=== PATIENT | female | born 1950 | race Caucasian/White ===

== ENCOUNTER 2018-01-11 15:37 | Emergency (ER) | payer OTHER ==
[~2018-01-11] VITALS: Ht 157.5 cm; Wt 68.1 kg
[~2018-01-11 15:37] MED LIST: ACETAMINOPHEN-1 EAC1 PO; AMPYRA10 MG PO; ASPIRIN81 M2 PO; AUBAGIO14 MG PO; BENTYL 20 MG TA20 M1 PO; BENTYL20 MG PO; CALCIUM 500 +1 EAC5 PO; CIPRO500 MG PO; DETROL LA4 MG PO; FISH OIL 1,0001 EAC7 PO; HYDROCODON-ACE1 EAC7 PO; HYDROCODON-ACE1 EACH PO; MYRBETRIQ25 MG PO; SIMVASTATIN20 MG PO; TRICOR145 MG PO; VITAMIN D1000 UNI1 PO
[2018-01-11] MEDS ORDERED: MYRBETRIQ25 MG PO (16:06)
[2018-01-11 18:49] VITALS: BP 152/105
== END 2018-01-11 18:49 | disposition home or self-care (01) ==
LOC: M.ERS 15:37
DX: S13.8XXA Sprain of joints and ligaments of other parts of neck, initial encounter (principal); S50.02XA Contusion of left elbow, initial encounter; S00.83XA Contusion of other part of head, initial encounter; M81.0 Age-related osteoporosis without current pathological fracture; G35 Multiple sclerosis; Z90.710 Acquired absence of both cervix and uterus; W18.2XXA Fall in (into) shower or empty bathtub, initial encounter; Y93.89 Activity, other specified; Y92.89 Other specified places as the place of occurrence of the external cause; Y99.8 Other external cause status

== ENCOUNTER 2018-10-23 23:48 | Inpatient (IN) | payer OTHER ==
[~2018-10-23] VITALS: Ht 157.5 cm; Wt 72.1 kg
[2018-10-23 23:54] VITALS: BP 149/75
[2018-10-24 00:53] LABS: HEMATOCRIT 44.1 % (37.0-47.0); HEMOGLOBIN 14.8 gm/dL (12.0-15.0); MCH 30.1 pg (26.0-34.0); MCHC 33.5 g/dL (28.0-37.0); MCV 89.9 fL (80.0-100.0); MPV 9.4 fl. (7.2-11.1); NUCLEATED RBCS 0 /100WBC; PLATELET COUNT* 258 thou/uL (150-400); RDW-CV 14.1 % (10.5-14.5); WBC 8.2 thou/uL (4.0-11.0)
[2018-10-24 01:01] LABS: CALCIUM 8.5 mg/dL (8.5-10.1); CREATININE 1.1 mg/dL (0.6-1.3); POTASSIUM 4.2 mmol/L (3.5-5.1)
[2018-10-24 01:05] LABS: ALBUMIN 2.9 g/dL (3.4-5.0); TOTAL BILIRUBIN 0.4 mg/dL (<0.1-1.0); TOTAL PROTEIN 6.3 g/dL (6.4-8.2)
[2018-10-24 01:46] LABS: ABSOLUTE LYMPHOCYTES 0.8 thou/uL (0.8-5.3); ABSOLUTE MONOCYTES 0.7 thou/uL (0.0-1.2); ABSOLUTE NEUTROPHILS 6.7 thou/uL (1.6-8.1)
[2018-10-24 01:47] LABS: LARGE PLATELETS FEW; PLATELET ESTIMATE ADEQUATE
[2018-10-24 03:43] LABS: URINE BILIRUBIN NEGATIVE (Negative); URINE BLOOD 3+ (Negative); URINE CLARITY CLEAR; URINE COLOR YELLOW; URINE GLUCOSE-RANDOM NEGATIVE (Negative); URINE KETONES 2+ (Negative); URINE LEUKOCYTES NEGATIVE (Negative); URINE NITRITE NEGATIVE (Negative); URINE PROTEIN NEGATIVE (Negative); URINE SPECIFIC GRAVITY >= 1.030 (1.005-1.030); URINE UROBILINOGEN 0.2 E.U./dl (0.2-1.0)
[2018-10-24 04:02] LABS: SQUAMOUS >10 Many /LPF (0-3)
[2018-10-24 04:03] LABS: CASTS None Seen /LPF (None Seen)
[2018-10-24 04:04] LABS: CRYSTALS None Seen /LPF (None Seen); URINE RBC >20 Many /HPF (0-2); URINE WBC 6-15 Few /HPF (0-5)
[2018-10-24 04:45] VITALS: BP 147/80
[2018-10-24 05:03] VITALS: BP 123/46
[2018-10-24 08:00] VITALS: BP 142/49
--- NOTE | 2018-10-24 11:04 | NUR ---
SPOKE TO THE PATIENT TO DISCUSS HER HOME SITUATION, DISCHARGE PLANNING, AND TO INFORM OF THE ROLE OF CM. PATIENT IS ALERT AND ORIENTED. PATIENT IS NORMALLY INDEPENDENT WITH ADL'S. PATIENT RESIDES AT HOME WITH HER MOTHER. PATIENT AND HER MOTHER SHARE RADIOLOGIC ELECTRONIC SPECIALIST AND COOKING. PATIENT INFORMS THAT SHE HAS A VERY SUPPORTIVE FAMILY, AND THAT HER SON ASSIST WITH TRANSPORTATION TO APPOINTMENTS AND SISTER ASSIST WITH [employer] SHOPPING. PATIENT OWNS A CANE (IN THE HOME) AND A WALKER (LONG DISTANCES) FOR MOBILITY. PATIENT HAS A HX OF HH IN THE PAST AFTER A SX, BUT COULD NOT RECALL THE NAME. PATIENT HAS NO HX OF SNF, BUT INFORMS THAT IF NEEDED SHE WOULD CONSIDER SNF AT [facility]. D/C PATIENT SERVICE TECHNICIAN PST TO SEND INITIAL REFERRAL TO V, BUT THERE ARE CURRENTLY NO PT/OT NOTES AVAILABLE PATIENTS WEIGHT BEARING STATUS IS NOT KNOWN AND AWAITING ORTHO CONSULT. CM WILL REMAIN AVAILABLE TO ASSIST AND FOLLOW NEEDED.
[2018-10-24 16:00] VITALS: BP 112/39
--- NOTE | 2018-10-24 17:13 | NUR ---
PATIENT RESTING IN BED. PATIENT HAS BEEN ON BEDREST TODAY. PATIENT SEEN BY DR CEDILLO THIS EVENING, AND PATIENT IS WBAT. PATIENT HAS HAD PAIN TO LEFT LEG TREATED ADEQAUTELY WITH HYDROCODONE. PATIENT WENT TO MRI THIS AFTERNOON WITHOUT INCIDENT. PATIENT HAS GOOD APPETITE. PATIENT DENIES ANY NEEDS AT THIS TIME. CALL LIGHT WITHIN REACH. WILL CONTINUE TO MONITOR.
[2018-10-24 20:45] VITALS: BP 118/53
[2018-10-25 05:03] LABS: CALCIUM 7.8 mg/dL (8.5-10.1); CREATININE 0.9 mg/dL (0.6-1.3)
--- NOTE | 2018-10-25 05:42 | NUR ---
PT SLEPT MOST OF SHIFT. ASSESSMENT DOCUMENTED. MEDS GIVEN PER E-AUG. PT LOST IV THIS SHIFT. WILL RESTART NEW IV. PAIN MEDS GIVEN PER E-AUG. NO REPORTS OF NAUSEA. INTERDRY IN PLACE. WILL CONTINUE WITH PLAN OF CARE.
[2018-10-25 08:10] VITALS: BP 134/62
--- NOTE | 2018-10-25 17:46 | NUR ---
PATIENT RESTING UP IN CHAIR. PATIENT IS UP MAX ASSIST FOR TRANSFERS. PATIENT WORKED WITH PHYSICAL AND OCCUPATIONAL THERAPIES TODAY. PATIENT HAS HAD COMPLAITS OF PAIN X 2 TODAY, TREATED ADEQUATELY WITH HYDROCODONE. PATIENT HAS GOOD APPETITE. PATIENT DENIES ANY NEEDS AT THIS TIME. CALL LIGHT WITHIN REACH. WILL CONTINUE TO MONITOR.
[2018-10-25 22:00] VITALS: BP 149/59
--- NOTE | 2018-10-26 04:21 | NUR ---
PT ALERT AND ORIENTED. PT UP TO CHAIR HALF OF SHIFT. PAIN MEDS GIVEN X1 THIS SHIFT. RELIEF NOTED. VSS ON RA. ASSESSMENT COMPLETED AND CHARTED. SHERWOOD TO URINE OUTPUT. PT IN BED NOW AND RESTING. CONTACT ISOLATION. BED IN LOW POSITION. CALL LIGHT WITHIN REACH. WILL CONTINUE TO MONITOR.
[2018-10-26 08:15] VITALS: BP 134/59
[2018-10-26 15:25] LABS: URINE BILIRUBIN NEGATIVE (Negative); URINE BLOOD NEGATIVE (Negative); URINE CLARITY CLEAR; URINE COLOR YELLOW; URINE GLUCOSE-RANDOM NEGATIVE (Negative); URINE KETONES NEGATIVE (Negative); URINE LEUKOCYTES NEGATIVE (Negative); URINE NITRITE NEGATIVE (Negative); URINE PROTEIN NEGATIVE (Negative); URINE UROBILINOGEN 0.2 E.U./dl (0.2-1.0)
--- NOTE | 2018-10-26 16:06 | NUR ---
PATIENT REFUSING ALL MORNING AND AFTERNOON TO GET INTO CHAIR, STATED "I SAT IN CHAIR ALL DAY YESTERDAY." PATIENT EDUCATED ON ACTIVITY. OT HERE THIS EVENING AND GOT PATIENT UP TO CHAIR. VICODIN GIVEN X 2 FOR RIGHT HIP PAIN. IVF AND SCHED ABX INFUSING ORDERED. CULT OF ABD BLISTERS REMAIN PENDING. PER DR. BANG FROM NEUROLOGY, WILL EVALUATE FOR STEROIDS TOMORROW.
[2018-10-26 16:15] VITALS: BP 150/52
--- NOTE | 2018-10-26 16:17 | NUR ---
MAGAZINE PUBLISHER RECIEVED A CALL FROM SHANE WITH ADMISSIONS AT [facility] AND SHE INFORMS THAT THEY HAVE RECIEVED INSURANCE AUTH FOR THE PATIENT. RN IN-CHARGE OF THE PATIENT INFORMS THAT THE PATIENT IS NOT READY TO D/C SHE MAY HAVE SHINGLES. RN INFORMS THAT THE PATIENT HAS OTHER CONSULTS PENDING WELL, AND SHE MAY NOT BE READY TO D/C OVER THE WEEKEND. D/C CENTRAL OFFICE MAINTAINER ALSO RECIEVED A CALL FROM [facility] [employer]ET[employer] DIRECTOR AND SHE INFORMS THAT INPATIENT REHAB HAD BEEN CONSULTED WELL. CM WILL REMAIN AVIALABLE TO ASSIST AND FOLLOW NEEDED.
[2018-10-26 20:20] VITALS: BP 132/57
[2018-10-27] VITALS: BP 148/68
[2018-10-27 04:00] VITALS: BP 150/70
[2018-10-27 04:36] LABS: ABSOLUTE EOSINOPHILS 0.3 thou/uL (0.0-0.7); ABSOLUTE LYMPHOCYTES 2.8 thou/uL (0.8-5.3); ABSOLUTE MONOCYTES 0.8 thou/uL (0.0-1.2); ABSOLUTE NEUTROPHILS 1.8 thou/uL (1.6-8.1); BASOPHILS 0.7 %; EOSINOPHILS 4.8 %; HEMATOCRIT 40.8 % (37.0-47.0); HEMOGLOBIN 13.6 gm/dL (12.0-15.0); LYMPHOCYTES 48.5 %; MCHC 33.4 g/dL (28.0-37.0); MCV 89.9 fL (80.0-100.0); MONOCYTES 13.7 %; MPV 10.5 fl. (7.2-11.1); NUCLEATED RBCS 0 /100WBC; PLATELET COUNT* 197 thou/uL (150-400); POLYS 32.3 %; RBC 4.53 mil/uL (4.20-5.00); RDW-CV 14.6 % (10.5-14.5); WBC 5.7 thou/uL (4.0-11.0)
[2018-10-27 05:34] LABS: CALCIUM 8.3 mg/dL (8.5-10.1); CREATININE 0.8 mg/dL (0.6-1.3); POTASSIUM 3.8 mmol/L (3.5-5.1)
--- NOTE | 2018-10-27 05:44 | NUR ---
PT ALERT AND ORIENTED. VSS ON RA. SINUS RHYTHM ON THE MONITOR. ASSESMENT COMPLETED AND DOCUMENTED. PT UP TO CHAIR THIS SHIFT. SHERWOOD PATENT. YELLOW URINE OUTPUT NOTED. PT GETS TEARY WHEN AMBULATION FROM CHAIR TO BED. PAIN MEDS GIVEN THIS SHIFT. RELIEF NOTED. CONTACT ISOLATION IN PLACE. NEW IV STARTED THIS BUT DC'D D/T INFILTRATION. NO IV ACESS AT THIS SHIFT. HOURLY ROUNDINGS MADE. CALL LIGHT WITHIN REACH. WILL CONTINUE PPLAN OF CARE
[2018-10-27 07:55] VITALS: BP 151/60
[2018-10-27 12:29] VITALS: BP 150/57
--- NOTE | 2018-10-27 17:07 | NUR ---
PATIENT RESTING UP IN CHAIR. PATIENT IS UP MAX ASSIST WITH GAIT BELT AND WALKER FOR TRANSFERS. PATIENT REFUSED PHYSICAL THERAPY TODAY. PATIENT HAD COMPLAINTS OF PAIN X 1 TREATED WITH HYDROCODONE. PATIENT HAS GOOD APPETITE. PATIENT DENIES ANY NEEDS AT THIS TIME. CALL LIGHT WITHIN REACH. WILL CONTINUE TO MONITOR.
[2018-10-27 19:50] VITALS: BP 168/65
[2018-10-28 00:02] VITALS: BP 175/61
[2018-10-28 04:00] VITALS: BP 157/72
--- NOTE | 2018-10-28 07:18 | NUR ---
PT ALERT AND ORIENTED THIS SHIFT. VSS ON RA. ASSESSMNENT DONE AND CHARTED. PT SLEPT MOST OF THE SHIFT. SINUS RHYTHM ON MONITOR. PAIN MED GIVEN X1 THIS SHIFT. RELIEF NOTED. CONTACT AND AIRBORNE ISOLATION IN PLACE. FALL PRECAUTION. HOURLY ROUNDS MADE. WILL CONTINUE TO MONITOR.
[2018-10-28 07:45] VITALS: BP 186/63
[2018-10-28] MEDS ORDERED: VITAMIN B-12500 MCG PO (12:45)
[2018-10-28] MEDS ORDERED: ACYCLOVIR 400400 MG PO (12:45)
[2018-10-28] MEDS ORDERED: SENNA PLUS TAB1 EACH PO (12:45)
[2018-10-28] MEDS ORDERED: HYDROCODON-ACE1 EAC7 PO (12:45)
--- NOTE | 2018-10-28 16:08 | NUR ---
PATIENT RESTING UP IN CHAIR. PATIENT IS UP WITH MODERATE/MAX ASSIST FOR TRANSFER WITH GAIT BELT AND WALKER. PATIENT HAD BEEN REFUSING SKILLED PLACEMENT BUT AFTER SPEAKING WITH HER SON SHE BECAME AGREEABLE TO GO TO HALFWAY FACILTY AT DISCHARGE. PATIENT DENIES ANY PAIN TODAY. PATIENT HAS FAIR APPETITE. PATIENT DENIES ANY NEEDS AT THIS TIME. CALL LIGHT WITHIN REACH. WILL CONTINUE TO MONITOR.
[2018-10-28 16:09] VITALS: BP 155/69
[2018-10-28 19:45] VITALS: BP 156/77
--- NOTE | 2018-10-29 05:10 | NUR ---
PT IN CHAIR FOR PART OF SHIFT. PT SLEPT MOST OF NIGHT. ASSESSMENT DOCUMENTED. MEDS GIVEN PER E-MAR. IV PATENT. PT HAD NO REPORTS OF PAIN THIS SHIFT, STATING SHE WOULD LET STAFF KNOW IF SHE GETS PAIN. PT STATES THAT SHE WILL WORK WITH PT TODAY. WILL CONTINUE WITH PLAN OF CARE.
[2018-10-29 07:30] VITALS: BP 165/61
--- NOTE | 2018-10-29 14:11 | NUR ---
CHA received call from [facility] asking about dc plans for pt as apparently [facility] had provided insurance auth for rehab; CHA forwarded call to Leydi with inpt rehab who stated that inpt rehab did not submit for auth yet due to pt not ready to dc on Monday. From previous CM notes, appears the auth was actually for [facility]; auth will lapse today if pt is not ready to dc today. Dr Denny had initiated and wants to consider inpt rehab for pt dc plan. SW to continue to follow to assist with safe dc planning.
--- NOTE | 2018-10-29 16:07 | NUR ---
RECEIVED CONSULT FOR INPATIENT ACUTE REHAB. WILL CONTINUE TO FOLLOW DURING HOSPITAL STAY. THANK YOU FOR THE REFERRAL
--- NOTE | 2018-10-29 16:28 | NUR ---
PATIENT UP TO CHAIR THIS SHIFT, REPOSITIONED AND BRIEF CHANGED FOR INCONTINENCE. SHINGLES TO ABD AND BACK DRAINING, ID CONSULTED. IV REMAINS SL. PRN VICODIN GIVEN X 2 WITH GOOD PAIN RELIEF NOTED. REHAB PLACMENT PENDING.
[2018-10-29 17:26] VITALS: BP 147/62
[2018-10-29 19:45] VITALS: BP 147/71
[2018-10-30 04:05] LABS: ABSOLUTE EOSINOPHILS 0.3 thou/uL (0.0-0.7); ABSOLUTE LYMPHOCYTES 2.6 thou/uL (0.8-5.3); ABSOLUTE MONOCYTES 0.5 thou/uL (0.0-1.2); ABSOLUTE NEUTROPHILS 3.1 thou/uL (1.6-8.1); BASOPHILS 0.5 %; EOSINOPHILS 4.5 %; HEMATOCRIT 41.2 % (37.0-47.0); HEMOGLOBIN 13.6 gm/dL (12.0-15.0); LYMPHOCYTES 39.8 %; MCH 29.5 pg (26.0-34.0); MCHC 33.2 g/dL (28.0-37.0); MONOCYTES 7.3 %; MPV 10.4 fl. (7.2-11.1); NUCLEATED RBCS 0 /100WBC; PLATELET COUNT* 207 thou/uL (150-400); POLYS 47.9 %; RBC 4.62 mil/uL (4.20-5.00); RDW-CV 13.7 % (10.5-14.5); WBC 6.4 thou/uL (4.0-11.0)
[2018-10-30 04:35] LABS: CALCIUM 8.8 mg/dL (8.5-10.1); CREATININE 0.8 mg/dL (0.6-1.3); POTASSIUM 4.2 mmol/L (3.5-5.1)
--- NOTE | 2018-10-30 05:49 | NUR ---
PT SLEPT MOST OF SHIFT. ASSESSMENT DOCUEMENTED. MEDS GIVEN PER E-AUG. IV PATENT. PAIN MEDS GIVEN PER E-MAR. PT INCONTINENT THROUGH NIGHT. PT IN CHAIT PART OF SHIFT. WILL CONTINUE WITH PLAN OF CARE.
[2018-10-30 07:50] VITALS: BP 167/84
--- NOTE | 2018-10-30 10:53 | NUR ---
CHA spoke with Leydi/inpt rehabilitation specialist who stated that inpt rehab accepted and now will submit for insurance auth so dc to inpt rehab pending insurance auth/response. SW to continue to follow.
--- NOTE | 2018-10-30 16:50 | NUR ---
PATIENT UP TO CHAIR THIS SHIFT, REPOSITIONED IN CHAIR. LARGE BM NOTED THIS SHIFT. VANCYCLOVIR STARTED TODAY BY DR. HERNANDEZ FROM ID, PATIENT TO START TONIGHT. PER DR. LINDSAY HOLD OFF ON TRANSFER TO REHAB FOR A FEW DAYS DUE TO SHINGLES. IV REMAINS SL, FLUSHING WITHOUT DIFFICULTY. PATIENT NOT STIFF WHEN STANDING AND SITTING TODAY. PRN HYDROCODONE GIVEN FOR PAIN WITH GOOD RELIEF NOTED.
[2018-10-30 20:15] VITALS: BP 123/69
[2018-10-31 05:18] LABS: CALCIUM 8.5 mg/dL (8.5-10.1); CREATININE 0.8 mg/dL (0.6-1.3); POTASSIUM 4.1 mmol/L (3.5-5.1)
[2018-10-31 05:21] LABS: ABSOLUTE EOSINOPHILS 0.3 thou/uL (0.0-0.7); ABSOLUTE LYMPHOCYTES 2.9 thou/uL (0.8-5.3); ABSOLUTE MONOCYTES 0.6 thou/uL (0.0-1.2); BASOPHILS 0.5 %; EOSINOPHILS 4.8 %; HEMATOCRIT 40.2 % (37.0-47.0); HEMOGLOBIN 13.2 gm/dL (12.0-15.0); LYMPHOCYTES 42.6 %; MCH 29.7 pg (26.0-34.0); MCHC 32.8 g/dL (28.0-37.0); MCV 90.6 fL (80.0-100.0); MONOCYTES 8.4 %; MPV 10.7 fl. (7.2-11.1); NUCLEATED RBCS 0 /100WBC; PLATELET COUNT* 230 thou/uL (150-400); POLYS 43.7 %; RBC 4.43 mil/uL (4.20-5.00); WBC 6.9 thou/uL (4.0-11.0)
--- NOTE | 2018-10-31 05:23 | NUR ---
PT SLEPT MOST OF SHIFT. ASSESSMENT DOCUMENTED. MEDS GIVEN PER E-MAR. IV PATENT. PAIN MEDS GIVEN PER E-MAR WITH RELIEF. PT INCONTINENT THROUGH NIGHT. INTERDRY IN PLACE. WILL CONTINUE WITH PLAN OF CARE.
[2018-10-31 08:25] VITALS: BP 141/60
--- NOTE | 2018-10-31 12:22 | NUR ---
Nutrition: Pt assessed for LOS. Admitted with MS flare up, extensive skin lesion. In ISO. Likely transfer to rehab in a couple of days. Albumin 2.9. B12 def, CKD III, osteoporosis. Regular diet. Wt: 158#. Has shingles. RX: B12, D3. Recommend MVI. RD will order Beneprotein for added nutrition. +BM yday. Mild risk at this time. GOALS: >75% of meal intake, recommend MVI, Beneprotein bid.
[2018-10-31 16:24] VITALS: BP 106/52
--- NOTE | 2018-10-31 16:49 | NUR ---
PATIENT RESTING UP IN CHAIR. PATIENT IS UP WITH MODERATE ASSIST WITH GAIT BELT AND WALKER. PATIENT DENIES ANY PAIN. PATIENT HAS GOOD APPETITE. PATIENT DENIES ANY NEEDS AT THIS TIME. CALL LIGHT WITHIN REACH. WILL CONITNUE TO MONITOR.
[2018-10-31 19:45] VITALS: BP 137/62
--- NOTE | 2018-11-01 05:46 | NUR ---
PT SLEPT ON AND OFF THIS SHIFT. ASSESSMENT DOCUMENTED. MEDS GIVEN PER E-AUG. IV PATENT. PAIN MEDS GIVEN PER E-AUG. PT UP IN CHAIR PART OF SHIFT. PT INCONTINENT THROUGH NIGHT. ISOLATION MAINTAINED. WILL CONTINUE WITH PLAN OF CARE.
[2018-11-01 07:50] VITALS: BP 139/50
--- NOTE | 2018-11-01 10:37 | CON ---
[address] [address] CONSULTATION Name: ROSAURA SHELDON Room: [address] IN M.R.#: [id number] Admission: 10/24/18 Attend Phys: Evangelina Colbert MD Discharge: Date of : 48 Report #: [id number] THIS REPORT FOR: //name// CC: Evangelina Quiles DATE OF SERVICE: 10/30/2018 INFECTIOUS DISEASE CONSULTATION: ATTENDING PHYSICIAN: Dr. Colbert. REASON FOR EVALUATION: Lumbar right-sided Varicella zoster. HISTORY OF PRESENT ILLNESS: Chart reviewed, patient examined. This is a 68-year-old woman with known multiple sclerosis who was admitted subsequent to a fall, was unable to get up on 10/24/2018, who developed an inflammatory eruption. It was quite painful unilaterally over the left-sided upper lumbar distribution. This was clinically diagnosed as Varicella zoster. She was started on antiviral medicine, does have persistent pain; although, my sense is, it may be lessened. Had significant pulmonary and gastrointestinal related complaints. She has been afebrile. She notes she did receive the shingles vaccine at some point several years ago. ALLERGIES: None known. MEDICATIONS: Include acyclovir 800 mg 5 times a day, pantoprazole, enoxaparin, cyanocobalamin, mirabegron, cholecalciferol, hydrocodone and ondansetron as needed. PAST MEDICAL HISTORY: As described above, multiple sclerosis, history of osteoporosis, previous hysterectomy, did have chickenpox as a child. SOCIAL HISTORY: Nonsmoker, no ethanol. FAMILY HISTORY: Noncontributory. REVIEW OF SYSTEMS: Appetite has been fair. Denies significant pulmonary-related complaints. No gastrointestinal distress, otherwise unremarkable 10-point review of systems. PHYSICAL EXAMINATION: GENERAL: She is alert, cooperative. She is sitting in the reclining chair. She is not overtly distressed, appears to be tracking fairly well. Mildly undernourished and somewhat chronically ill appearing. VITAL SIGNS: Temperature 97.8, pulse 71, respirations 18, [place] [address] CONSULTATION Name: PITO,ROSAURA S Room: [address]#: [id number] Admission: 10/24/18 Attend Phys: Evangelina Colbert MD Discharge: Date of : 48 Report #: [id number] 167/84. SKIN: Warm, dry. HEENT: Normocephalic. Extraocular muscles intact. NECK: Supple. LUNGS: Clear to auscultation. HEART: Regular. I do not appreciate a murmur. ABDOMEN: Soft. There is some tenderness on the left side. EXTREMITIES: Does have zoster form type eruption over lumbar dermatome that extends laterally and posteriorly. GENITOURINARY: Deferred. RECTAL: Deferred. LABORATORY DATA: Electrolytes: Sodium 142, potassium 4.2, chloride 107, bicarbonate is 25, anion gap of 10, BUN and creatinine 17 and 0.8, glucose of 100, CRP of 9.5. CBC: White count of 6.4, H and H 13.6 and 41.2, platelets of 207. Differential unremarkable. Blood cultures sterile thus far. Culture of the site with no growth collected on the . Culture of the virus preliminarily showed no virus at 24 hours. ASSESSMENT AND PLAN: Varicella zoster. It is reasonable to continue systemic antiviral at this point. We will adjust therapy. It is difficult to ascertain how well she would absorb the acyclovir. At this point, it is not clear if she will have some postherpetic neuralgia. Continue symptomatic treatment, may benefit potentially from Lidoderm patch or some topical anesthetic. We will monitor expectantly. Certainly at risk for nosocomial related infectious complications, add incentive spirometer, increase activity as allowed. <ELECTRONICALLY SIGNED> By: Marvin Burch MD 11/01/18 1037 [id number] Burch MD /nt
--- NOTE | 2018-11-01 14:36 | NUR ---
CHA spoke with Leydi/physician liaison today to receive updates on insurance auth process, Leydi said auth wasn't submitted yesterday bc medical stability was not clear. CHA spoke with Dr Denny and Dr Denny also wrote for dc, confirmed medically stable for a couple of days now; so then inpt rehab submitted for auth. Possible for admit to inpt rehab today if auth received.
[2018-11-01 16:55] VITALS: BP 125/68
[2018-11-01 16:56] VITALS: BP 125/68
[2018-11-01] MEDS ORDERED: VALTREX 500 MG500 MG PO (17:02)
--- NOTE | 2018-11-01 19:27 | NUR ---
PATIENT DISCHARGED TO INPATIENT REHAB. REPORT GIVEN TO PAUL ALVAREZ. BELONGINGS TRANSFERRED TO ROOM 325. IV REMOVED. COPY OF CHART AND DISCHARGE ORDERS PROVIDED.
--- NOTE | 2018-11-05 16:31 | CON ---
[address] [address] CONSULTATION Name: ROSAURA SHELDON Room: [address] IN M.R.#: [id number] Admission: 10/24/18 Attend Phys: Evangelina Colbert MD Discharge: 11/01/18 Date of : 48 Report #: [id number] THIS REPORT FOR: //name// CC: Evangelina Quiles DATE OF SERVICE: 10/24/2018 HISTORY OF PRESENT ILLNESS: This is a 68-year-old female patient who was evaluated by me for MS. None of the family member is here. The patient does not remember things very well. She indicates that she was diagnosed with MS more than 20 years ago. She had some visual disturbances at that time, but she does not remember what they were. She followed up with Dr. Chan and then she believes she went to another neurologist. She indicates that she has not had any MRI recently. She does not know how many times contrast was injected into her. She does not know when was her last MRI. She indicates she has been diagnosed now with chronic progressive MS, but looks like at one time, it was relapsing, remitting. She is not on any disease-modifying treatment. She does not know when she took the last steroids. She lives with her mom and her sister helps her. She fell and she came with musculoskeletal injuries, which is being worked up for hospitalist. REVIEW OF SYSTEMS: Positive for MS. At this time, she is admitted after a mechanical fall. To me, she denies any discomfort in the back. She does have a history of osteoporosis and hysterectomy. REVIEW OF SYSTEMS: A 14-point review of system was carried out and she indicates she does not have any new eye, ENT, cardiac, respiratory, GI, , constitutional, dermatological, hematological, psychiatric, throat, allergic symptoms associated with present symptomatology. PAST MEDICAL HISTORY: Positive for MS. FAMILY HISTORY: Negative for any early age stroke. SOCIAL HISTORY: She does not use alcohol or tobacco. PHYSICAL EXAMINATION: Indicate she is alert. She is responsive. She can tell me what month it is and what hospital she is in, but she does not remember her history very well. I think her memory and fund of knowledge is diminished, but at her baseline. Cranial nerve examination 2-12 indicates mostly noncontributory. She has very little strength in lower extremities. She barely can move them, but she can move them to some extent. Her position sense is intact. The reflexes are present and maybe somewhat hyper. Tone looks symmetrical. I could not look at the patient's fundus. She does not appear to have any clearcut cerebellar sign. Cardiac [place] [address] CONSULTATION Name: ROSAURA SHELDON Room: [address] IN .#: [id number] Admission: 10/24/18 Attend Phys: Evangelina Colbert MD Discharge: 11/01/18 Date of : 48 Report #: [id number] noncontributory. No respiratory difficulty was noticed. Her hearing and vision is adequate. Vital signs indicate a blood pressure of 142/49, respirations 18, pulse is 84, and temperature is 99.1. LABORATORY DATA: Urinalysis indicate 2+ ketones and 6-[address] scan appears unremarkable. IMPRESSION AND PLAN: I suspect the patient has deteriorated partly because of her urinary tract infection. I think it will be desirable to do an MRI to make sure she does not have any bone lesion. Her GFR is borderline, but we will do the MRI before contrast to make sure she did not injure her spine or any other abnormalities present and then may consider with contrast. We will see how she does with physical therapy. All of it was discussed with the patient in detail and she wants to follow this plan. She does need the treatment of her musculoskeletal problem, which is being addressed by hospitalist. Thank you very much for this referral. <ELECTRONICALLY SIGNED> By: Ramses Love MD 11/05/18 1631 [id number] Love MD /nt
== END 2018-11-01 18:50 | DRG 543 ==
LOC: M.ERS 23:48 → M.3W 10-24 03:03 → M.TBA-ER 10-24 03:03 → M.3W 10-24 06:01
PROVIDERS: Emergency Medicine; Family Medicine; Internal Medicine; Psychiatry & Neurology Neuromuscular Medicine; ADMIT Internal Medicine
DX: M80.062A Age-related osteoporosis with current pathological fracture, left lower leg, initial encounter for fracture (principal); E44.0 Moderate protein-calorie malnutrition; B01.9 Varicella without complication; Z90.710 Acquired absence of both cervix and uterus; B02.9 Zoster without complications; N18.3 Chronic kidney disease, stage 3 (moderate); Z79.82 Long term (current) use of aspirin; Z79.899 Other long term (current) drug therapy; S82.102A Unspecified fracture of upper end of left tibia, initial encounter for closed fracture; E53.8 Deficiency of other specified B group vitamins; W18.39XA Other fall on same level, initial encounter; Y93.89 Activity, other specified; Y92.89 Other specified places as the place of occurrence of the external cause; Y99.8 Other external cause status; Z68.29 Body mass index [BMI] 29.0-29.9, adult

== ENCOUNTER 2018-11-01 17:10 | Inpatient (IN) | payer OTHER ==
[~2018-11-01] VITALS: Ht 157.5 cm; Wt 67.1 kg
[~2018-11-01 17:10] MED LIST changes: +ACYCLOVIR 400400 MG PO; +SENNA PLUS TAB1 EACH PO; +VALTREX 500 MG500 MG PO; +VITAMIN B-12500 MCG PO
[2018-11-01 19:30] VITALS: BP 185/68
--- NOTE | 2018-11-02 00:36 | NUR ---
ASSUMED CARE AT 1929 WHEN PATIENT ADMITTED TO ROOM 325 FROM [facility]. RESTED IN RECLINER UNTIL AROUND 2129. WHEN SHE ATTEMPTED TO RISE FROM SITTING TO STAND, PATIENT STATED SHE WAS UNABLE TO WALK TO THE TOILET. BSC OBTAINED. PATIENT UP WITH MAX ASSIST OF 2 TO BSC. PATIENT DID OWN HYGIENE. TO BED WITH MAX ASSIST OF 2. TAKES PILLS WHOLE WITH WATER. ASSESSMENT COMPLETE, FORMS SIGNED. WBAT LLE. MEDICATED FOR PAIN, SEE MAR. HAS SHINGLES TO LT BUTTOCK AND BACK, SOME ARE DRYING UP, MOST COVERED WITH BRIEF. WEARS BRIEF DUE TO INCONTINENCE. STATES SHE DRIBBLES MOST ALL OF THE TIME. DID VOID PER BSC, BLADDER SCAN SHOWED 103 ML. ORIENTED TO REHAB ROUTINE. HOURLY ROUNDS CONTINUE. BED ALARM ON. CALL LITE IN REACH.
[2018-11-02 03:52] LABS: HEMATOCRIT 41.2 % (37.0-47.0); HEMOGLOBIN 13.7 gm/dL (12.0-15.0); MCH 29.8 pg (26.0-34.0); MCHC 33.3 g/dL (28.0-37.0); MCV 89.6 fL (80.0-100.0); MPV 9.9 fl. (7.2-11.1); RBC 4.6 mil/uL (4.20-5.00); RDW-CV 14.3 % (10.5-14.5); WBC 6.4 thou/uL (4.0-11.0)
[2018-11-02 04:12] LABS: CALCIUM 8.7 mg/dL (8.5-10.1); CREATININE 0.8 mg/dL (0.6-1.3)
[2018-11-02 05:01] LABS: URINE BILIRUBIN NEGATIVE (Negative); URINE BLOOD NEGATIVE (Negative); URINE CLARITY CLEAR; URINE COLOR YELLOW; URINE GLUCOSE-RANDOM NEGATIVE (Negative); URINE KETONES NEGATIVE (Negative); URINE LEUKOCYTES-REFLEX 1+ (Negative); URINE NITRITE-REFLEX NEGATIVE (Negative); URINE PROTEIN NEGATIVE (Negative); URINE SPECIFIC GRAVITY 1.015 (1.005-1.030); URINE UROBILINOGEN 0.2 E.U./dl (0.2-1.0)
--- NOTE | 2018-11-02 05:27 | NUR ---
SLEPT MUCH OF THE SHIFT UNTIL AROUND 0430. NEEDED TO VOID. SINCE EARLIER UP WTIH MAX ASSIST OF 2, USED BEDPAN. U/A SENT TO LAB PER ORDER. UP WITH LIFTING ASSIST, GAIT BELT, WALKER. TOOK SMALL STEPS FROM BED TO CHAIR WITH CUEING. RESTING WITH LEGS ELEVATED IN RECLINER. MOISTURE BARRIER APPLIED TO GROINS. ENCOUARGED PATIENT TO CHANGE POSITIONS OFTEN WITH AREAS OF SHINGLES TO LT HIP AND BUTTOCKS. MEDICATED FOR PAIN, SEE AUG. HOURLY ROUNDS CONTINUE. BED ALARM ON. CHAIR ALARM ON. CALL LITE IN REACH.
[2018-11-02 06:03] LABS: SQUAMOUS >10 Many /LPF (0-3)
[2018-11-02 06:04] LABS: WBC CLUMPS Few (None Seen)
[2018-11-02 06:06] LABS: BACTERIA-REFLEX 1-9 Few /HPF (None Seen); URINE RBC 0-2 Rare /HPF (0-2); URINE WBC-REFLEX >25 Many /HPF (0-5)
[2018-11-02 06:07] LABS: MUCUS None Seen strn/LPF (None Seen)
[2018-11-02 06:08] LABS: AMORPHOUS URATES Moderate /LPF (None Seen); CASTS None Seen /LPF (None Seen)
[2018-11-02 07:15] VITALS: BP 152/63
--- NOTE | 2018-11-02 12:18 | NUR ---
Nutrition: Pt admitted to rehab with UTI, Lt knee and ankle pain, MS, B12 def. Regulsr diet ordered. Wt: 145#. Acute shingles. Unsure of po intake today. Will follow pt weekly for po intake, wt, labs. Mild risk.
--- NOTE | 2018-11-02 16:35 | NUR ---
SW met with pt to complete initial assessment, introduce self, and SW role on inpt rehab unit. Pt alert, oriented, pleasant. Pt lives at home with her mother. Pt has RW, cane, shower bench. Pt has hx of services, unknown name of agency. Pt has supportive family. SW to continue to follow to assist with safe dc planning.
--- NOTE | 2018-11-02 18:14 | NUR ---
PT A&Ox4. VITALS STABLE. WORKED WITH THERAPY. PAIN CONTROLLED WITH NORCO. INCONTINENT OF BLADDER AT TIMES. UP WITH 1 MOD ASSIST USING GAITBELT/WALKER/WHEELCHAIR. CONTACT PRECAUTIONS MAINTAINED DUE TO SHINGLES ON L LOWER ABD TO LOWER BACK/BOTTOM. FALL PRECAUTIONS IN PLACE. CALL LIGHT WITHIN REACH. WILL CONTINUE TO MONITOR.
[2018-11-02 21:10] VITALS: BP 144/66
--- NOTE | 2018-11-03 06:07 | NUR ---
ASSUMED CARE AT 1920. ALERT AND ORIENTED. ON ISOLATION FOR SHINGLES. SHINGLES RASH TO LEFT SIDE OF ABD/BACK. PAIN MEDS GIVEN NEEDED. WBAT LLE FOR FIBULA FX. MIN ASSIST WITH GAIT BELT AND WALKER. UP TO BATHROOM. WEARS PULLUPS FOR STRESS INCONTINENCE. ONLY SLEPT 3 HRS IN BED. WANTED UP INTO RECLINER AT 0300. SAYS THAT SLEEPS IN RECLINER AT HOME. CALL LIGHT IN REACH AND BED ALARM ON.
[2018-11-03 07:15] VITALS: BP 131/59
--- NOTE | 2018-11-03 16:29 | NUR ---
ALERT AND ORIENTED X 4, UP WITH GAIT BELT AND WALKER CONTACT GUARD. DENIES ANY COMPLAINTS. NO SIGN OF DISTRESS. CONT. WITH PLAN OF CARE.
[2018-11-03 20:32] VITALS: BP 161/57
--- NOTE | 2018-11-04 05:24 | NUR ---
ASSUMED CARES AT 1920. ALERT AND ORIENTED. PLEASANT. PAIN MEDS GIVEN FOR LEFT SIDE PAIN DUE TO SHINGLES. ON CONTACT ISOLATION. MIN ASSIST WITH GAIT BELT AND WALKER. UP TO BATHROOM. WEARS PULLUPS FOR STRESS INCONTINENCE. REFUSED TO SLEEP IN BED AND SLEPT IN RECLINER. CALL LIGHT IN REACH.
--- NOTE | 2018-11-04 16:20 | NUR ---
PATIENT RESTING IN RECLINER. UP WITH SBA GAIT BELT AND WALKER. C/O PAIN, GIVE MEDS ORDER. NO FURTHER COMPLAINTS.
[2018-11-04 19:00] VITALS: BP 137/51
--- NOTE | 2018-11-04 23:13 | NUR ---
ASSUMED CARE AT 1930. PATIENT RESTING IN RECLINER, AND DOES NOT WANT TO SLEEP IN THE HOSPITAL BED. PATIENT DOES CHANGE POSITIONS WHILE IN RECLINER. REFUSES ASSIST WITH TURNS DESPITE EDUCATION. UP WITH SBA, GAIT BELT, WALKER, WBAT LLE. VOIDS PER TOILET, DOES OWN HYGIENE. ASSISTED WITH CHANGING CLOTHES INTO HOSPITAL GOWN AT . WEARS PULLUPS. TAKES PILLS WHOLE WITH WATER. REMAINS ON CONTACT ISOLATION. SHINGLES ARE DRYING UP TO LT FLANK AND BUTTOCKS. HOURLY ROUNDS CONTINUE. BED ALARM ON. CALL LITE IN REACH.
--- NOTE | 2018-11-05 06:34 | NUR ---
SLEPT MOST OF THE NIGHT. VOIDED PER TOILET. UP WITH CGA, GAIT BELT, WALKER. NEEDS MUCH EXTRA TIME. NEEDS CUEING TO STAND TALL RATHER THAN BENT OVER HER WALKER. RETURNED TO RECLINER. WAS INCONTINENT INTO BRIEF, THIS CHANGED WITH VOIDING. PATIENT ABLE TO PULL UP THE PULLUP ONCE THREADED BY NURSING. HOURLY ROUNDS CONTINUE. BED ALARM ON. CALL LITE IN REACH.
[2018-11-05 08:02] VITALS: BP 153/48
--- NOTE | 2018-11-05 15:09 | NUR ---
ASSUMED CARE AT 0730. ALERT ORIENTED PLEASANT COOPERATIVE. HX OF MS AND L KNEE AND RT. HIP WEAKNESS. TRANSFERS WITH MIN ASSIST AND AMBULATES WITH SLOW STEPS G BELT WALKER TO BR TO VOID. WEARS PULLUPS FOR OCCASSIONAL INCONTINENCE. PARTICIPATING IN THERAPIES. TO DR FOR MEALS. USES CALL LIGHT APPROPRIATELY FOR ASSISTANCE. IN ISOLATION FOR HX OF SHINGLES. OK TO GIVE SON INFORMATION PER PT. REQUEST.
[2018-11-05 20:00] VITALS: BP 129/62; BP 141/55
--- NOTE | 2018-11-06 05:27 | NUR ---
ASSUMED CARES AT 1920. ALERT AND ORIENTED. PLEASANT. C/O PAIN TO LEFT SIDE/HIP. PAIN MEDS GIVEN. CONTACT ISOLATION FOR SHINGLES. RASH TO LEFT SIDE AND ABD MOSTLY SCABBED OVER. MIN ASSIST WITH GAIT BELT AND WALKER. UP TO BATHROOM. WEARS PULLUPS. STRESS INCONTINENCE. SLEEPS IN RECLINER. CALL LIGHT IN REACH.
[2018-11-06 07:20] VITALS: BP 129/61
--- NOTE | 2018-11-06 14:15 | NUR ---
ASSUMED CARE AT 0730. ALERT AND ORIENTED PLEASANT COOPERATIVE. HX OF MS AND NON DISPLACED FXS LOWER EXTREMITIES. TRANSFERS WITH SBA G BELT WALKER AMBULATES TO BR TO VOID IS INCONTITNENT IN BRIEFS PULLUPS. HAS HERPES ZOSTER L SIDE AND BACK DRYING AREAS. MEDICATED X 1 FOR L HIP PAIN WITH SOME RELIEF STATED. USES CALL LIGHT APPROPRIATELY FOR ASSIST. IN ISOLATION FOR SHINGLES. TO DR FOR MEALS.
--- NOTE | 2018-11-06 16:45 | NUR ---
SW spoke with pt son Ananda in preparation for team conference. Pt interested in pt medical recommendations and was going to speak with Dr Dacosta in more detail to receive any clarifications on anything. SW discussed team conference and safe dc planning and son did not express any major concerns or questions at this time.
[2018-11-06 20:16] VITALS: BP 152/65
--- NOTE | 2018-11-07 05:16 | NUR ---
ASSUMED CARES AT 1920. ALERT AND ORIENTED. PLEASANT. C/O PAIN TO LEFT SIDE. PAIN MEDS GIVEN. CONTACT ISOLATION FOR SHINGLES. RASH TO LEFT SIDE. MIN ASSIST WITH GAIT BELT AND WALKER. UP TO BATHROOM. WEARS PULLUPS. LIKES TO SLEEP IN RECLINER SHE DOES THIS AT HOME. CALL LIGHT IN REACH.
[2018-11-07 08:03] VITALS: BP 139/57
--- NOTE | 2018-11-07 17:03 | NUR ---
SW met with pt to review team conference summary and plan for pt to remain on rehab unit one more week with team to reassess pt length of stay during team conference next Monday. Pt was emotional about her family possibly discussing pt needing to exchange incontinence pads that pt has ordered for a long time and pt said that is what she wants and she does not want her sister or her son thinking that they can control what pads she orders. Pt was okay with plan to continue therapies and get stronger on rehab. Pt okay with staff speaking to family about her rehab stay and medical conditions and recommendations. CHA called pt son Ananda and he did not answer so SW left message regarding plan to reteam. SW to continue to follow to assist with safe dc planning.
--- NOTE | 2018-11-07 18:14 | NUR ---
PATIENT RESTING IN RECLINER. DENIES COMPLAINTS OF PAIN OR DISCOMFORT. TEARFUL ABOUT HOME SITUATION. TRIED TO TALK TO HER. SHE DID NOT WANT TO TALK.
[2018-11-07 19:55] VITALS: BP 108/52
[2018-11-07 20:21] VITALS: BP 137/56
[2018-11-07 20:25] VITALS: BP 101/62
--- NOTE | 2018-11-08 06:02 | NUR ---
ASSUMED CARES AT 1920. ALERT AND ORIENTED. PLEASANT. C/O PAIN TO LEFT SIDE. PAIN MEDS GIVEN. SHINGLES RASH TO LEFT ABD/BACK. MIN ASSIST WITH GAIT BELT AND WALKER. UP TO BATHROOM BUT IS MOSTLY INCONTINENT OF URINE. WEARS PULLUPS. SLEPT SOME. CALL LIGHT IN REACH AND BED ALARM ON.
--- NOTE | 2018-11-08 18:20 | NUR ---
PT VSS THIS SHIFT. PT COMPLIANT WITH FALL PXN THIS SHIFT AND APPROPRITATELY CALLS OUT FOR PAIN CONTROL AND AMBULATORY NEEDS. PT PARTICIPATED IN ALL THERAPIES SCHEDULED TODAY WITH NO COMPLAINTS OR CONCERNS. ISOLATION REMOVED DUE TO SHINGLES RASH BEING SCABBED OVER. PT TOLERATING RA AND DIET WITH NO C/O N/V THIS SHIFT. HOURLY ROUNDING MAINTAINED. PT REMINDED TO OFFLOAD WEIGHT WHILE SITTING AND WAS GONE FREQUENTLY WITH THERAPIES THIS SHIFT. WILL CONTINUE TO MONITOR AND ASSESS.
[2018-11-08 23:47] VITALS: BP 139/80
--- NOTE | 2018-11-09 01:32 | NUR ---
ASSUMED CARE AT 1930. PATIENT RESTING IN RECLINER. REFUSES TO SLEEP IN BED. REPOSITIONS SELF IN RECLINER. SHINGLES RASH DRIED UP. TAKES PILLS WHOLE WITH WATER. UP WITH GAIT BELT, WALKER. NEEDS EXTRA TIME. VOIDS PER TOILET, ABLE TO DO HYGIENE BUT NEEDS HELP WITH ONE SIDE OF CLOTHING TO MAINTAIN BALANCE WHILE HOLDING GRAB BAR OR WALKER. INCONTINENT INTO PULLUPS, PATIENT CHANGES THEM WITH SET UP. HOURLY ROUNDS CONTINUE. BED ALARM ON. CALL LITE IN REACH.
--- NOTE | 2018-11-09 05:11 | NUR ---
RESTING QUIETLY IN RECLINER. REPOSITIONS SELF. NO C/O PAIN. HOURLY ROUNDS CONTINUE. ALARMS IN USE FOR SAFETY, CALL LITE IN REACH.
[2018-11-09 09:09] VITALS: BP 154/60
--- NOTE | 2018-11-09 15:19 | NUR ---
ASSUMMED CARE OF PT AT 0730, PT ALERT AND ORIENTED, TRANSFERS WITH SBA, GB WALKER, PT MEDICATED FOR LEFT LEG PAIN EARLY THIS AM AND STATES HAD GOOD RELIEF OF PAIN, PT TAKING FOOD AND FLUIDS WELL, PT HAS SOME INCONTINENCE IN BRIEF AND ALSO VOIDS PER TOILET. SHINGLE LESIONS ON BACK DRY/SCABBED. TO DININGROOM FOR LUNCH, PARTICIPATED IN ALL THERAPIES, HOURLY ROUNDING COMPLETED, ASSESSMENT COMPLETE, WILL CONTINUE TO MONITOR.
[2018-11-09 20:21] VITALS: BP 155/64
[2018-11-09 22:00] VITALS: BP 155/64
--- NOTE | 2018-11-10 05:55 | NUR ---
PT ALERT AND ORIENTED. VSS ON RA. PT BROUGHT OUT OF ROOM PER NADYAO WARNING PROTOCOL. PAIN MED GIVEN THIS SHIFT. PT SLEPT ON RECLINER THIS SHIFT. SHE SAYS SHE'S MORE COMFORTABLE ON RECLINER THAN IN BED. FALL PRECAUTION IN PLACE. CALL LIGHT WITHIN REACH. WILL CONTINUE TO MONITOR.
[2018-11-10 07:00] VITALS: BP 156/71
--- NOTE | 2018-11-10 16:53 | NUR ---
ASSUMED CARE AT 0730. ALERT ORIENTED PLEASANT COOPERATIVE. HX OF MS AND FALLS. TRANSFERS WITH SBA G BELT WALKER AMBULATES TO BR TO VOID ALSO INCONTINENT WEARS PULLUPS. FEEDS SELF TAKES MEDS WITHOUT DIFFICULTY. USES CALL LIGHT APPROPRIATELY FOR ASSISTANCE. MEDICATED X 2 FOR C/O L SIDE PAIN RELATED TO SHINGLES WHICH ARE DRY NOW. PARTICIPATING IN THERAPIES THROUGHOUT THE DAY. TO FOR MEALS.
[2018-11-10 20:02] VITALS: BP 136/44
--- NOTE | 2018-11-10 20:05 | NUR ---
SITTING UP IN A RECLINER WATCHING TV. VERY PLEASANT. TOOK MEDICATION WHOLE WITH WATER. SNACK PRAOVIDED. CALL LIGHT WITHIN REACH. STATES SLEEPS IN RECLINER AT NIGHT LIKE SHE DOES AT HOME.
--- NOTE | 2018-11-11 05:35 | NUR ---
SLEPT SOUNDLY UNTIL NOW. UP TO THE BATHROOM WITH SBA, GAITBELT, WALKER TO THE BATHROOM VERY SLOWLY TO VOID. INCONTINENT. NEW BRIEF PROVIDED. PAIN MEDICATION GIVEN FOR COMPLAINT OF LEFT LEG PAIN RATED "8". HOURLY ROUNDING IN PROGRESS.
[2018-11-11 08:00] VITALS: BP 129/59
--- NOTE | 2018-11-11 15:42 | NUR ---
ASSUMED CARE AT 0730. ALERT ORIENTED PLEASANT COOPERATIVE. HX OF MS AND FALLS. TRANSFERS WITH SBA G BELT AMBULATES TO BR VOIDS WEARS PULLUPS FOR INCONTINENCE URINE. SITTING UP IN RECLINER AT BEDSIDE. STATES L LEG PAIN MEDICATED WITH PRN PAIN MED PER PT. REQUEST. USES CALL LIGHT APPROPRIATELY FOR ASSIST SON HERE VISITING BROUGHT LUNCH AND NEW CLOTHES ETC FOR HIS MOM. TAKES MEDS WITHOUT DIFFICULTY. SHINGLES SCABS DRY L SIDE.
[2018-11-11 19:57] VITALS: BP 140/60
--- NOTE | 2018-11-11 23:09 | NUR ---
ASSUMED CARE AT 1930. RESTING IN RECLINER. SLEEPS IN RECLINER. TAKES PILLS WHOLE WITH WATER. REPOSITIONS SELF IN RECLINER. VOIDS PER TOILET. UP WITH SBA, GAIT BELT, WALKER. TAKES EXTRA TIME. DOES OWN HYGIENE BUT NEEDS HELP WITH CLOTHING ADJUSTMENT. DENIES PAIN. HOURLY ROUNDS CONTINUE. CHAIR ALARM ON. CALL LITE IN REACH.
--- NOTE | 2018-11-12 06:27 | NUR ---
SLEPT MOST OF THE NIGHT EXCEPT TO VOID. WEARS PULLUPS AND WAS INCONTINENT OF URINE BUT CONTAINED IN PULLUP. VOIDS PER TOILET WITH RISER. MEDICATED FOR PAIN WITH RELIEF. CHANGED POSITIONS IN RECLINER PER SELF. HOURLY ROUNDS CONTINUE. BED ALARM ON. CALL LITE IN REACH.
[2018-11-12 08:00] VITALS: BP 151/54
--- NOTE | 2018-11-12 15:28 | NUR ---
ASSUMMED CARE OF PT AT 0730, PT ALERT AND ORIENTED, TRANSFERS WITH ASSIST OF 1 GB WALKER, PT COMPLAINS OF PAIN IN LEFT HIP, MEDICATED X 1 WITH RELIEF, TAKING FOOD AND FLUIDS WELL, INCONTINENCE AND PT VOIDS IN TOILET, TO DININGROOM FOR LUNCH, PARTICIPATED IN ALL THERAPIES, HOURLY ROUNDING COMPLETED, ASSESSMENT COMPLETE, WILL CONTINUE TO MONITOR.
[2018-11-12 19:30] VITALS: BP 153/75
--- NOTE | 2018-11-12 20:00 | NUR ---
SITTING UP IN RECLINER WITH LEGS ELEVATED WATCHING TV. SNACK PROVIDED. PAIN MED GIVEN FOR COMPLAINT OF LEFT HIP PAIN RATED "8". CALL LIGHT AND TV CONTROLLER WITHIN REACH.
--- NOTE | 2018-11-13 05:40 | NUR ---
AT ABOUT 0330 DECIDED TO TRY TO SLEEP IN BED BECAUSE WAS BOTTOM WAS GETTING SORE FROM SITTING. UP X ONE DURING THE NIGHT TO THE BATHROOM TO VOID. HOURLY ROUNDING IN PROGRESS.
[2018-11-13 07:15] VITALS: BP 136/64
--- NOTE | 2018-11-13 16:51 | NUR ---
ASSUMMED CARE OF PT AT 0730, PT ALERT AND ORIENTED, TRANSFERS WITH ASSIST OF 1 GB WALKER, SLOW, PT COMPLAINS OF LEFT HIP AND LEG PAIN, MEDICATED PER ORDER, TAKING FOOD AND FLUIDS WELL, HAD LUNCH IN DININGROOM, INCONTINENT OF URINE IN BRIEF AND ALSO AMBULATED TO BATHROOM TO VOID, PARTICIPATED IN ALL THERAPIES, HOURLY ROUNDING COMPLETED, ASSESSMENT COMPLETE, WILL CONTINUE TO MONITOR.
[2018-11-13 19:38] VITALS: BP 158/59
--- NOTE | 2018-11-13 19:50 | NUR ---
SITTING UP IN CHAIR WATCHING TV. DENIES DISCOMFORT. CALL LIGHT WITHIN REACH.
[2018-11-14 04:32] LABS: CALCIUM 8.6 mg/dL (8.5-10.1); CREATININE 0.9 mg/dL (0.6-1.3); MAGNESIUM 2.1 mg/dL (1.8-2.4); POTASSIUM 4.1 mmol/L (3.5-5.1)
[2018-11-14 04:46] LABS: HEMATOCRIT 42.4 % (37.0-47.0); HEMOGLOBIN 14.1 gm/dL (12.0-15.0); MCH 30.5 pg (26.0-34.0); MCHC 33.2 g/dL (28.0-37.0); MCV 91.8 fL (80.0-100.0); MPV 10.3 fl. (7.2-11.1); RBC 4.61 mil/uL (4.20-5.00); RDW-CV 14.6 % (10.5-14.5)
--- NOTE | 2018-11-14 04:59 | NUR ---
RESTED QUIETLY IN RECLINER WITH LEGS ELEVATED ALL NIGHT. NO COMPLAINTS VOICED. HOURLY ROUNDING IN PROGRESS.
[2018-11-14 07:00] VITALS: BP 147/68
--- NOTE | 2018-11-14 15:27 | NUR ---
CHA and Dr Dacosta met with pt to review team conference summary and plan for pt to remain on rehab unit to continue therapies with team to reassess pt length of stay during team conference next Tuesday 11/21. Pt goals mod I and SW dicussed possible mod I trial in TLA eventually but pt was not certain of that change and said that she likes the room she is in now. Pt was in agreement with plan to reteam but was also emotional about having to stay in the hospital. SW to continue to follow to assist with safe dc planning.
--- NOTE | 2018-11-14 17:52 | NUR ---
ASSUMED CARE AT 0730. ALERT ORIENTED PLEASANT COOPERATIVE. HX OF MS AND FALLS. TRANSFERS WITH SBA G BELT WALKER AND AMBULATES TO BR VOIDS HAS INCONTINENCE IN PULLUP AND FRESH PULLUP APPLIED. USES CALL LIGHT FOR ASSISTANCE MEDICATED WITH PRN VICODIN X 1 THIS A.M. FOR L LEG PAIN WITH SOME RELIEF STATED. PARTICIPATING IN THERAPIES THROUGHOUT THE DAY. UP IN RECLINER WHEN NOT IN THERAPIES.
[2018-11-14 20:00] VITALS: BP 146/47
--- NOTE | 2018-11-14 22:10 | NUR ---
INITAL ASSESMENT COMPLETED AT 2029. PT SITTING IN RECLINER AT THAT TIME WITH CALL LIGHT IN REACH. PT DEMONSTRATES PROPER USE OF CALL LIGHT. PT ASSISTED TO RESTROOM BY NURSE TECH. HS MEDS GIVEN PER EMAR. PT SLEEPING IN RECLINER PER HER REQUEST. FREQUENT VISUAL CHECKS DONE.
--- NOTE | 2018-11-15 05:46 | NUR ---
no acute changes throughout shift. pt weak, reqires walker and gait belt for assistance when getting up to bathroom. pt taking prn vicodin for pain on left side from fall at home.
[2018-11-15 08:00] VITALS: BP 139/60
[2018-11-15 08:54] VITALS: BP 139/60
--- NOTE | 2018-11-15 19:01 | NUR ---
PT VSS, TOLERATING RA, THERAPIES, AND DIET THIS SHIFT. PT HAS NO C/O PAIN AND IS ALBE TO CALL OUT FOR AMBULATORY NEEDS. HOURLY ROUNDING MAINTAINED THIS SHIFT. WILL CONTINUE TO MONITOR AND ASSESS
[2018-11-15 20:18] VITALS: BP 175/63
--- NOTE | 2018-11-15 23:09 | NUR ---
ASSUMED CARE AT 1930. PATIENT RESTING IN RECLINER, REFUSES TO SLEEP IN BED. TURNS SELF IN RECLINER. UP TO VOID PER TOILET, GAIT BELT, WALKER, EXTRA TIME. DOES OWN HYGIENE AND CLOTHING ADJUSTMENTS INCLUDING PULLUPS. TAKES PILLS WHOLE WITH WATER. MEDICATED FOR PAIN AT HS, SEE MAR. HOURLY ROUNDS CONTINUE. CHAIR ALARM ON. CALL LITE IN REACH.
--- NOTE | 2018-11-16 06:06 | NUR ---
SLEPT IN RECLINER MOST OF THE NIGHT EXCEPT TO VOID. UP WITH SBA, GAIT BELT, WALKER. STILL ANTICIPATING BM. NO FURTHER C/O PAIN. HOURLY ROUNDS CONTINUE. BED ALARM ON. CALL LITE IN REACH.
[2018-11-16 09:01] VITALS: BP 132/70
--- NOTE | 2018-11-16 13:17 | NUR ---
ASSUMED CARE AT 0730. ALERT ORIENTED PLEASANT COOPERATIVE. HX OF MS AND FALLS. TRANSFERS WITH SBA G BELT WALKER AMBULATES TO BR TO VOID HAS INCONTINENCE OF URINE AND CHANGES PULLUPS WITH BR TRIPS. HAS REDNESS UNDER PANNUS WILL REQUEST CREAM OR POWDER FROM [facility] WHEN ROUNDING TODAY. MEDICATED X 1 FOR C/O SHINGLES PAIN AND L HIP PAIN. PARTICIPATING IN THERAPIES THROUGHOUT THE DAY. UP IN RECLINER AT BEDSIDE WHEN NOT IN THERAPIES.. USES CALL LIGHT APPROPRIATELY FOR ASSISTANCE.
--- NOTE | 2018-11-16 17:44 | NUR ---
PT. HAS REDNESS MOISTNESS UNDER PANNUS AND RT. GROIN AREA. AREAS CLEANSED WITH WOUND CLEANSER AND SOAP AND WATER DRIED WELL INTERDRY PLACED AND PHOTOS TAKEN SEE CHART. REACHING OUT TO DR. MILLER FOR POWDER OR CREAM FOR THIS. PT. IS INCONTINENT AND WEARS PULLUPS WHICH ARE CHANGED WITH TOILETING.
[2018-11-16 20:19] VITALS: BP 150/61
[2018-11-16 21:09] VITALS: BP 150/61
--- NOTE | 2018-11-17 05:20 | NUR ---
PT SLEPT IN THE RECLINER. VSS ON RA. PAIN MEDS GIVEN X1 THIS SHIFT. RELIEF NOTED. PT REFUSED COLACE AND SENNA THIS SHIFT. NO BM NOTED THIS SHIFT. CHAIR ALARM ON. CALL LIGHT WITHIN REACH. PT CALLS OUT APPROPRIATELY. HOURLY ROUNDINGS MADE. WILL CONTINUE PLAN OF CARE.
[2018-11-17 07:54] VITALS: BP 135/78
[2018-11-17 07:57] VITALS: BP 142/61
[2018-11-17 20:14] VITALS: BP 119/60
[2018-11-17 21:00] VITALS: BP 119/60
--- NOTE | 2018-11-18 05:14 | NUR ---
PT ALERT AND ORIENTED. VSS ON RA. PT SLEPT ON RECLINER LIKE SHE HAS BEEN DOING OTHER NIGHTS. PT DENIES N/V/P. PT UPSET THAT NO ANTIFUNGAL POWDER HAS BEEN ORDERED. TO PASS ON TO DAYSHIFT NURSE. PT SAYS SHE WAS ADVICED THAT SHE WOULD NEED POWDER RATHER THAN CREAM. PT TOOK COLACE AND SENNA THIS SHIFT. NO BM NOTED THIS SHIFT. CHAIR ALARM ON. NO BM NOTED THIS SHIFT. BRIEF IN PLACE. PT ALSO VOIDS IN THE TOILET. CALLL LIGHT WITHIN REACH. HOURLY ROUNDINGS MADE. WILL CONTINUE TO MONITOR.
[2018-11-18 07:47] VITALS: BP 150/63
--- NOTE | 2018-11-18 17:38 | NUR ---
PATIENT HAS BEEN UP TO CHAIR THROUGHOUT DAY. PATIENT IS UP WITH STANDBY ASSIST WITH WALKER AND GAITBELT. PATIENT HAS WALKED IN HALLS WITH ASSISTANCE. PATIENT HAS GOOD APPETITE. PATIENT HAS COMPLAINTS OF PAIN TO LEFT LEG, TREATED ADEQUATELY WITH MEDICATION. PATIENT DENIES ANY NEEDS AT THIS TIME. CALL LIGHT WITHIN REACH. WILL CONTINUE TO MONITOR.
[2018-11-18 19:10] VITALS: BP 132/52
--- NOTE | 2018-11-18 20:45 | NUR ---
AMBULATES SLOWLY WITH SBA, GAITBELT, WALKER. HAD AN EXTRA LARGE BROWN FORMED BM. DID HER OWN LYNN CARE. BECAME UPSET AND SHORT TEMPERED IN BATHROOM WHEN TRYING TO ADJUST HER PULL UPS. THE PATIENT STATED THEY WERE TOO BIG. HAD PATIENT SIT BACK DOWN AND OBTAINED A PAIR OF PULL UPS A SIZE SMALLER. PATIENT WAS APOLOGETIC FOR LOSING HER TEMPER. DENIES NEED FOR PAIN MEDICATION AT THIS TIME. PATIENT SLEEPS IN HER RECLINER WITH LEGS ELEVATED. DECLINED OFFER OF A SNACK. CALL LIGHT WITHIN REACH.
--- NOTE | 2018-11-19 06:17 | NUR ---
RESTED QUIETLY. UP X ONE DURING THE NIGHT AND AGAIN THIS MORNING TO THE BATHROOM TO VOID. PAIN MEDICATION GIVEN THIS MORNING FOR COMPLAINT OF LEFT HIP PAIN AND SORENESS FROM SHINGLES. HOURLY ROUNDING IN PROGRESS.
[2018-11-19 07:58] VITALS: BP 133/78
--- NOTE | 2018-11-19 13:41 | NUR ---
ASSUMED CARE AT 0730. ALERT ORIENTED PLEASANT COOPERATIVE. HX OF MS AND FALLS AT HOME. SITTING UP IN RECLINER AT BEDSIDE. TRANSFERS WITH SBA G BELT WALKER AND AMBULATES TO BR TO VOID AND IS ABLE TO DO HYGEINE AND CLOTHING ADJUSTMENTS CHANGES PULLUPS DUE TO INCONTINENCE. NYSTATIN POWDER APPLIED TO PANNUS AREA AFTER O.T. WORKED WITH HER FOR ADLS.USES CALL LIGHT APPROPRIATELY FOR ASSISTANCE. TO FOR LUNCH PER W/C.
--- NOTE | 2018-11-19 16:38 | NUR ---
PTS. PANNUS AND APRON AREA PINK DRY WITH NYSTATIN POWDER APPLICATIONS MUCH IMPROVED FROM MONDAY AFTERNOON. SITTING IN RECLINER WITH FEET ELEVATED.
[2018-11-19 20:00] VITALS: BP 155/77
--- NOTE | 2018-11-20 05:17 | NUR ---
ASSUMED CARES AT 1920. ALERT AND ORIENTED. PLEASANT. C/O PAIN TO LEFT SIDE AND LEG. NORCO GIVEN. MIN ASSIST WITH GAIT BELT AND WALKER. UP TO BATHROOM TO VOID BUT HAS URINARY INCONTINENCE. WEARS PULLUPS. SLEPT IN RECLINER. CALL LIGHT IN REACH.
[2018-11-20 07:30] VITALS: BP 143/51
--- NOTE | 2018-11-20 10:47 | NUR ---
ASSUMED CARE AT 0730. ALERT ORIENTED PLEASANT COOPERATIVE. HX OF MS AND FALLS. TRANSFERS WITH SBA G BELT WALKER AND AMBULATES TO BR TO VOID WEARS PULLUPS AND HAS INCONTINENCE OF URINE FREQUENTLY NYSTATIN POWDER APPLIED TO PANNUS AREA WHICH IS IMPROVED AND PINK DRY NOW. USES CALL LIGHT APPROPRIATELY FOR ASSIST. DENIES NEED FOR PRN PAIN MEDS THIS A.M.
[2018-11-20 19:54] VITALS: BP 138/42
--- NOTE | 2018-11-21 05:14 | NUR ---
ASSUMED CARES AT 1920. ALERT AND ORIENTED. PLEASANT. C/O PAIN TO LEFT HIP AND LEG. PAIN MED GIVEN. SHINGLES RASH TO LEFT SIDE AND BACK HEALING. MIN ASSIST WITH GAIT BELT AND WALKER. UP TO BATHROOM. WEARS PULLUPS FOR INCONTINENCE. WILL ONLY SLEEP IN RECLINER. SLEPT WELL. CALL LIGHT IN REACH.
[2018-11-21 07:50] VITALS: BP 140/50
--- NOTE | 2018-11-21 15:43 | NUR ---
CHA and Dr Dacosta met with pt and reviewed team conference summary and plan for pt to dc home with family on Monday. Pt in agreement with plan. Tried to call pt son to review dc plan but no answer and no voicemail available. SW to continue to follow to assist with safe dc planning for Thursday 11/23.
--- NOTE | 2018-11-21 16:05 | NUR ---
PATIENT UP IN RECLINER THIS SHIFT. UP WITH SBA, WALKER, AND GAIT BELT. PRN VICODIN GIVEN X 1 THIS SHIFT. INCONTINENT OF URINE, BRIEFS IN PLACE. DISCHARGE PLANNED FOR MONDAY.
--- NOTE | 2018-11-21 19:45 | NUR ---
SITTING UP IN RECLINER WITH LEGS ELEVATED WATCHING TV. PATIENT SEEMED IRRITATED WITH BEING DISTURBED WITH HAVING VITAL SIGNS TAKEN, ETC. AMBULATED TO THE BATHROOM WITH SBA, GAITBELT, WALKER. INCONTINENT OF URINE. ASSISTED WITH CHANGING PULL UPS. DID OWN LYNN CARE. STARTED CRYING. PATIENT STATED SHE FELT LIKE HER THERAPY WAS MORE INTENSE TODAY AND THAT SHE HAD A "BAD DAY". PAIN MED GIVEN FOR COMPLAINT OF LEFT HIP PAIN RATED "9". SLEEPS IN RECLINER. CALL LIGHT WITHIN REACH.
[2018-11-21 20:04] VITALS: BP 156/54
--- NOTE | 2018-11-22 05:49 | NUR ---
SLEPT SOUNDLY. NO FURTHER COMPLAINT OF PAIN. HOURLY ROUNDING IN PROGRESS.
[2018-11-22 09:24] VITALS: BP 141/67
--- NOTE | 2018-11-22 17:16 | NUR ---
ASSUMMED CARE OF PT AT 0730, PT ALERT AND ORIENTED, TRANSFERS WITH SBA GB WALKER, COMPLAINS OF PAIN IN BACK AND LEG, MEDICATED X 1 FOR PAIN PRIOR TO THERAPIES THIS AM, SLIGHT PINK AREA IN ABDOMINAL FOLDS, NYSTATIN APPLIED, PT REFUSED BOWEL MEDS THIS SHIFT AND STATES SHE NORMALLY ONLY GOES EVERY 3 DAYS AND IS NOT CONCERNED THAT SHE HAS NOT HAD A BM FOR 4 DAYS, DENIES DISCOMFORT, EDUCATED PT ON TAKING BOWEL MEDS BUT PT REFUSED AT THIS TIME, PARTICIPATED IN ALL THERAPIES, HOURLY ROUNDING COMPLETED, ASSESSMENT COMPLETE, WILL CONTINUE TO MONITOR.
[2018-11-22 20:10] VITALS: BP 189/55
--- NOTE | 2018-11-22 20:25 | NUR ---
AMBULATED TO THE BATHROOM WITH SBA, GAITBELT, WALKER. IN BETTER SPIRITS TODAY THAN YESTERDAY. HAS ALMOST ALL OF HER BELONGINGS PACKED UP DUE TO BEING DISCHARGED TO HOME TOMORROW. PAIN MED GIVEN FOR COMPLAINT OF LEFT HIP PAIN RATED "8". CALL LIGHT WITHIN REACH.
--- NOTE | 2018-11-23 06:04 | NUR ---
NO FURTHER COMPLAINT OF PAIN. RESTED QUIETLY. UP THIS MORNING TO THE BATHROOM TO VOID. IN GOOD SPIRITS. HOURLY ROUNDING IN PROGRESS.
[2018-11-23 08:17] VITALS: BP 166/61
[2018-11-23 11:26] VITALS: BP 166/61
[2018-11-23 14:21] VITALS: BP 166/61
--- NOTE | 2018-11-23 14:23 | NUR ---
Pt to dc home with family today. Pt to have HH services follow through pt preference of [facility]. SW called [facility] and spoke with intake to provide referral and faxed HH orders, face to face, and final med list. [facility] [phone]
[2018-11-23] MEDS ORDERED: COLACE100 MG PO (14:26)
[2018-11-23] MEDS ORDERED: UNICOMPLEX M TA1 TA1 PO (14:28)
[2018-11-23] MEDS ORDERED: TYLENOL325 MG PO (14:35)
[2018-11-23] MEDS ORDERED: MYLANTA PO (14:38)
[2018-11-23] MEDS ORDERED: MILK OF MA2400 MG/11 PO (14:39)
--- NOTE | 2018-11-23 16:25 | NUR ---
ASSUMMED CARE OF PT AT 0730, PT ALERT AND ORIENTED, PT COMPLAINS OF PAIN IN LEG AND BACK, MEDICATED PER ORDER, TRANSFERS SLOWLY WITH GB WALKER SBA , TAKING FOOD AND FLUIDS WELL, WEARS BRIEF FOR SOME INCONTINENCE, BM X 1 THIS SHIFT, PARTICIPATED IN ALL THERAPIES, HAD LUNCH IN DININGROOM,ORDERS OBTAINED FOR DISCHARGE, SON AND PT EDUCATED ON FOLLOW UP APPTS, MEDICATIONS, SCRIPTS GIVEN TO PT, HOME HEALTH, DIET, FALL PRECAUTIONS, PT STATES UNDERSTANDING OF INFORMATION, PT DISCHARGED TO MAIN ENTRANCE WITH BELONGINGS.
== END 2018-11-23 16:30 | disposition home health service (06) | DRG 59 ==
LOC: M.REH 17:10
PROVIDERS: Internal Medicine; ADMIT Physical Medicine & Rehabilitation
DX: G35 Multiple sclerosis (principal); N39.0 Urinary tract infection, site not specified; M81.0 Age-related osteoporosis without current pathological fracture; N18.3 Chronic kidney disease, stage 3 (moderate); S82.409A Unspecified fracture of shaft of unspecified fibula, initial encounter for closed fracture; X58.XXXA Exposure to other specified factors, initial encounter; B02.9 Zoster without complications; B95.2 Enterococcus as the cause of diseases classified elsewhere; Z90.710 Acquired absence of both cervix and uterus; Z79.899 Other long term (current) drug therapy; Y93.89 Activity, other specified; Y92.89 Other specified places as the place of occurrence of the external cause; Y99.8 Other external cause status; M54.9 Dorsalgia, unspecified